=== PATIENT | male | born 1950 | race Caucasian/White ===

== ENCOUNTER 2020-10-01 15:07 | Emergency (ER) | payer MEDICARE, OTHER ==
--- NOTE | 2020-10-01 19:49 | ER ---
DATE SEEN: 10/01/2020 REASON FOR VISIT: Wound check. HISTORY OF PRESENT ILLNESS: This is a 69-year-old male who had a stent about 14 days ago. The looked at the incision on the right wrist and she is worried about infection. There was a small slight drainage, but no pain. He denies any systemic symptoms. ALLERGIES: None. PHYSICAL EXAMINATION: GENERAL: He is not in distress. VITAL SIGNS: He is afebrile. EXTREMITIES: Right wrist, on the volar aspect, was a tiny wound, slightly red, but no drainage noted. No pain or warmth. IMPRESSION: Encounter for wound check. PLAN: Reassurance, warm compress, ibuprofen. No further treatment unless symptoms get worse or new symptoms, e.g., fever occur. /[id number] GOLDEN/[place]
== END 2020-10-01 15:40 | disposition home or self-care (01) ==
LOC: FB.ED 15:07
DX: Z48.817 Encounter for surgical aftercare following surgery on the skin and subcutaneous tissue (principal)
CPT/HCPCS: 99282